=== PATIENT | male | born 1950 | race Caucasian/White ===

== ENCOUNTER 2016-10-06 21:02 | Emergency (ER) | payer MEDICARE, OTHER ==
[~2016-10-06] VITALS: Ht 175.3 cm; Wt 94.8 kg
[~2016-10-06 21:02] MED LIST changes: -*ONDANSETRON 4 MG VIAL PERIprocedural Use ONLY ONE; -*RESP: ALBUTEROL 2.5 MG/3 ML NEB (PRN) PERIprocedural Use ONLY NEB ONE; -ACETAMINOPHEN/HYDROcodone 325 MG/5 MG TAB ONE; -ACETAMINOPHEN/HYDROcodone 325 MG/5 MG TAB PO PRN; -AMPICILLIN-SULBACTAM INJ 3 GM VIAL ONE; -AMPICILLIN/SULBAC 3 GM/NS 100 ML IV SCH; -BACITRACIN TOP OINT 15 GM TUBE ONE; -FAMOTIDINE 20 MG/2 ML VIAL ONE; -INSULIN HUMAN REGULAR 1,000 UNITS/10 ML VIAL SQ PRN; -LACTATED RINGER'S 1000 ML INJ 1,000 ML IV ONE; -LACTATED RINGER'S 1000 ML IV SCH; -LIDOCAINE 1%/EPINEPHrine 1:100,000 SOLN 30 ML VIAL ONE; -METOPROLOL TARTRATE 25 MG TAB PO PRN; -MIDAZOLAM HCL 2 MG/2 ML VIAL ONE; -NEOSTIGMINE 3 MG/3 ML SYR IV ONE; -ONDANSETRON HCL 4 MG/2 ML VIAL IV PUSH ONE; -ONDANSETRON HCL 4 MG/2 ML VIAL ONE; -OXYMETAZOLINE HCL 0.05% 15 ML NASAL SPRAY ONE; -PROPOFOL 200 MG/20 ML AMP IV ONE; -SODIUM CHLORID 0.9% 500 ML IV SCH; -SODIUM CHLORIDE 0.9% INJ 100 ML ONE; -ePHEDrine/NS 25 MG/5 ML SYR IV ONE
[2016-10-06 22:56] VITALS: BP 138/77; PULSE 74; RESP 18; TEMP 98; O2SAT 96
[2016-10-06] MEDS ORDERED: OXYMETAZOLINE HCL 0.05% 15 ML NASAL SPRAY NASAL ONE (23:15)
[2016-10-06] MEDS ORDERED: LIDOCAINE 2% JELLY 30 ML TUBE TOPICAL ONE (23:30)
--- NOTE | 2016-10-06 23:36 | PD ---
HPI Chief Complaint: Nosebleed Time Seen by Provider: 23:07 Travel History International Travel<30 days: No Contact w/Intl Traveler<30days: No Traveled to known affect area: No History of Present Illness HPI Patient is a 65-year-old male presents emergency department for evaluation of a nosebleed. Patient is followed by Dr. Paredes recently had surgery on his nasal septum today. Patient states that he has been soaking through his nasal packing and call Dr. Paredes who advised him to come in the emergency department to be seen. Patient states that he has not been having any postnasal drip no wooziness no hypotensive symptoms. Symptoms onset today. Gradually worsening. Patient does not have a history of easy bruising or bleeding, he does not have any history of using anticoagulants. PFSH Past Medical History Cancer: Yes (Throat cancer) Cardiovascular Problems: Yes (CHOLESTEROL) Coronary Artery Disease: Yes Diminished Hearing: No Gastrointestinal Disorders: Yes (BARRETTS DISEASE) Genitourinary: Yes (FREQUENCY) Hypertension: Yes Immunizations Current: Yes Radiation Therapy: Yes (Daily m-f) Tetanus Vaccination: < 5 Years Influenza Vaccination: Yes Past Surgical History Abdominal Surgery: Yes (CHOLECYSTECTOMY) Cardiac Surgery: Yes (bypass) Cholecystectomy: Yes Coronary Artery Bypass Graft: Yes (2004) Genitourinary Surgery: Yes (VASECTOMY) Oral Surgery: Yes (PARTIAL PLATE IN HIGH SCHOOL) Other Surgery: Yes (SEPTOPLASTY) Social History Alcohol Use: Yes (SOCIAL) Tobacco Use: No (QUIT 11 YRS AGO) Substance Use: No Allergies-Medications (Allergen,Severity, Reaction): Coded Allergies: No Known Allergies (Verified , 10/05/16) Reported Meds & Prescriptions Reported Meds & Active Scripts Active Reported Fish Oil ([place]-3 Fatty Acids) 1,000 Mg Cap 1,000 Mg PO DAILY Nitrostat SL (Nitroglycerin) 0.4 Mg Subl 0.4 Mg SL ONCE Omeprazole 40 Mg Cap 40 Mg PO DAILY Aspirin 81 Mg Tabdr 162 Mg PO DAILY Fenofibrate 160 Mg Tab 160 Mg PO HS Simvastatin 40 Mg Tab 40 Mg PO HS Ramipril 2.5 Mg Cap 2.5 Mg PO DAILY Carvedilol 6.25 Mg Tab 6.25 Mg PO BID Review of Systems Except as stated in HPI: all other systems reviewed are Neg Physical Exam Narrative GENERAL: Well-developed well-nourished no apparent distress SKIN: Warm and dry. HEAD: Atraumatic. Normocephalic. EYES: Pupils equal and round. No scleral icterus. No injection or drainage. ENT: Patient has nasal packing in place in bilateral nares, was removed easily and was not soaked, there is minimal bleeding from his nasal septum bilaterally and very mild. Oropharynx is clear. Mucous membranes pink and moist. NECK: Trachea midline. No JVD. CARDIOVASCULAR: Regular rate and rhythm. No murmur appreciated. RESPIRATORY: No accessory muscle use. Clear to auscultation. Breath sounds equal bilaterally. GASTROINTESTINAL: Abdomen soft, non-tender, nondistended. Hepatic and splenic margins not palpable. MUSCULOSKELETAL: No obvious deformities. No clubbing. No cyanosis. No edema. NEUROLOGICAL: Awake and alert. No obvious cranial nerve deficits. Motor grossly within normal limits. Normal speech. PSYCHIATRIC: Appropriate mood and affect; insight and judgment normal. Data Data Last Documented VS Orders Oxymetazoline 0.05% Dominick [place] (Afrin 0.0 (10/06/16 23:15) Lidocaine 2% Jelly (Xylocaine 2% Jelly) (10/06/16 23:30) MDM Medical Decision Making Medical Screen Exam Complete: Yes Emergency Medical Condition: Yes Differential Diagnosis Nasal bleeding, epistaxis, anterior epistaxis, posterior epistaxis unlikely, postoperative bleeding, anemia is highly unlikely, coagulopathy highly unlikely. Narrative Course Patient is a 65 year old male presents with anterior epistaxis, very minimal after nasal surgery today. Patient given afrin spray and then posterior packing placed with lidocaine jelly as lubricant. DIscussed briefly with Dr. Paredes who agrees, patient to be seen at 0800 tomorrow by him. Stable for discharge. Diagnosis Primary Impression: Epistaxis Additional Instructions: Follow-up with Dr. Paredes at 0800 tomorrow in [place] office as instructed. Disposition: DISCHARGE HOME Condition: Stable Cristobal Sullivan MD Oct 06, 2016 23:36
[2016-10-07 00:24] VITALS: BP 132/77
== END 2016-10-07 00:25 | disposition home or self-care (01) ==
LOC: PHEFT 21:02
DX: R04.0 Epistaxis (principal)
CPT/HCPCS: 30905

== ENCOUNTER → 2016-10-06 | Day surgery (SDC) | payer MEDICARE, OTHER ==
[~2016-10-06] VITALS: Ht 175.3 cm; Wt 94.9 kg
[~2016-10-06] MED LIST: *ONDANSETRON 4 MG VIAL PERIprocedural Use ONLY ONE; *RESP: ALBUTEROL 2.5 MG/3 ML NEB (PRN) PERIprocedural Use ONLY NEB ONE; ACETAMINOPHEN/HYDROcodone 325 MG/5 MG TAB ONE; ACETAMINOPHEN/HYDROcodone 325 MG/5 MG TAB PO PRN; AMPICILLIN-SULBACTAM INJ 3 GM VIAL ONE; AMPICILLIN/SULBAC 3 GM/NS 100 ML IV SCH; ASPI1TAB69 PO; BACITRACIN TOP OINT 15 GM TUBE ONE; CARV6.252 PO; FAMOTIDINE 20 MG/2 ML VIAL ONE; FENO160T PO; FISH1000 PO; INSULIN HUMAN REGULAR 1,000 UNITS/10 ML VIAL SQ PRN; LACTATED RINGER'S 1000 ML INJ 1,000 ML IV ONE; LACTATED RINGER'S 1000 ML IV SCH; LIDOCAINE 1%/EPINEPHrine 1:100,000 SOLN 30 ML VIAL ONE; METOPROLOL TARTRATE 25 MG TAB PO PRN; MIDAZOLAM HCL 2 MG/2 ML VIAL ONE; NEOSTIGMINE 3 MG/3 ML SYR IV ONE; NITR0.4S SL; OMEP40CA2 PO; ONDANSETRON HCL 4 MG/2 ML VIAL IV PUSH ONE; ONDANSETRON HCL 4 MG/2 ML VIAL ONE; OXYMETAZOLINE HCL 0.05% 15 ML NASAL SPRAY ONE; PROPOFOL 200 MG/20 ML AMP IV ONE; RAMI2.5C PO; SIMV40TA PO; SODIUM CHLORID 0.9% 500 ML IV SCH; SODIUM CHLORIDE 0.9% INJ 100 ML ONE; ePHEDrine/NS 25 MG/5 ML SYR IV ONE
[2016-10-06 06:27] VITALS: BP 105/63; PULSE 50; RESP 16; TEMP 98.3; O2SAT 96
[2016-10-06 10:30] VITALS: BP 118/68; PULSE 52; RESP 18; TEMP 97.6; O2SAT 98
--- NOTE | 2016-10-06 22:47 | EKG ---
Date Performed: 10/06/2016 Time Performed: 06:24:29 PTAGE: 65 years EKG: SINUS BRADYCARDIA WITH FIRST DEGREE AV BLOCK ANTEROSEPTAL MYOCARDIAL INFARCTION , OF INDETE RMINATE AGE MODERATE T-WAVE ABNORMALITY, CONSIDER LATERAL ISCHEMIA ABNORMAL ECG PREVIOUS TRACING : 08/08/2013 07.36 DOCTOR: Clive Hughes Interpretating Date/Time 10/06/2016 22:45:02
--- NOTE | 2016-10-25 08:25 | MP ---
cc: JOEY PAREDES M.D. DATE OF OPERATION October 06, [address] Joey Paredes PREOPERATIVE DIAGNOSES 1. Nasal airway obstruction. 2. Nasal septal deviation. 3. Hypertrophy of inferior turbinates. POSTOPERATIVE DIAGNOSES 1. Nasal airway obstruction. 2. Nasal septal deviation. 3. Hypertrophy of inferior turbinates. OPERATION PERFORMED 1. Open repair of nasal septal fracture. 2. Bilateral submucosal resection of inferior turbinates. INDICATIONS As documented in the history and physical. DESCRIPTION OF OPERATION The patient was taken to OR #2 and placed in the supine position. Following induction of general anesthesia and intubation the nose was packed bilaterally with cotton pledgets saturated in 0.05% oxymetazoline. The nasal septal mucosa and inferior turbinates were injected with a total of 12 mL of 1% Xylocaine with epinephrine 1:100,000. He was then prepped and draped for surgery. The packing was removed and a hemitransfixion incision was made in the right nasal vestibule. Through this incision the mucosa was elevated bilaterally from the quadrangular cartilage as far as the junction of the bony cartilaginous septum. 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 A cumulative area of 2 x 2.5 cm of the quadrangular cartilage was removed in a piecemeal fashion using a [place] elevator and Winchester-Hawkins forceps. When this was completed, the anterior end of the quadrangular cartilage was completely mobilized and was returned to the midline and then sewn in place to the maxillary crest using a single suture of 4-0 chromic. The bony septum was then dressed. The mucosa was elevated from the bony septum and was removed using Bryan-Hawkins forceps and Renaldo septal forceps. The maxillary crest was removed using a 6-mm Danna chisel preserving the anterior nasal spine. The incision was then closed using a running suture of 4-0 chromic and the mucosal layers of septum were approximated to each other with a quilting stitch of 4-0 plain gut. The inferior turbinates were addressed next. These were outfractured and then stab incisions were made along their inferior surfaces. Through these incisions, the submucosal soft tissue was reduced using a curette preserving the conchal bone. The incisions were then cauterized using the suction Bovie at 35 long and the remnants of the inferior turbinates were then relateralized to the lateral nasal wall. The nose was then packed with Merocel tampons coated in bacitracin ointment and the procedure was terminated. The patient was reversed from anesthesia and taken to Recovery in good condition. There were no complications. Blood loss was 60 mL. MD LINDY Roberts/SCOT /5:50 AM /8:16 AM
== END | disposition home or self-care (01) ==
LOC: HSDC 05:54
PROVIDERS: ATTEND Otolaryngology
DX: J34.2 Deviated nasal septum (principal); J34.3 Hypertrophy of nasal turbinates; I10 Essential (primary) hypertension; I25.10 Atherosclerotic heart disease of native coronary artery without angina pectoris; I25.2 Old myocardial infarction; Z95.1 Presence of aortocoronary bypass graft; R04.0 Epistaxis
CPT/HCPCS: 00160; 21336; 30140; 93005; 94664; J0295; J2405; J2710; J3010; J7120; J7613; 30905; J2250